=== PATIENT | male | born 1980 | race Caucasian/White ===

== ENCOUNTER 2016-07-28 22:19 | Emergency (ER) | payer OTHER ==
[~2016-07-28] VITALS: Ht 172.7 cm; Wt 97.3 kg
[2016-07-28 23:08] LABS: EOSINOPHIL COUNT 0.2 K/uL (0-0.3); HEMATOCRIT 41.3 % (38.0-50.0); IMMATURE GRANULOCYTE (%) 0.2 % (0.0-0.7); IMMATURE GRANULOCYTE COUNT 0.2 K/uL; MCHC 33.9 G/DL (30.0-36.0); MCV 85.5 FL (86-99); MEAN PLAT.VOLUME 9.5 uM^3 (9.0-12.4); MONOCYTE (%) 7.3 % (3-12); MONOCYTE COUNT 0.8 K/uL (0-0.8); NEUTROPHIL (%) 63.9 % (45-76); NEUTROPHIL COUNT 7.2 K/uL (1.8-6.4); PLATELET COUNT 246 K/uL (156-360); RBC DIS.WIDTH-CV 12.7 % (11.8-14.6); RBC DIS.WIDTH-SD 39.1 % (39-53); RED BLOOD COUNT 4.83 M/uL (4.00-5.50); WHITE BLOOD COUNT 11.3 K/uL (4.1-10.2)
[2016-07-28 23:21] LABS: CHLORIDE 104 mEq/L (99-109); INTER. NORMALIZED RATIO 1.1; POTASSIUM 4.1 mEq/L (3.7-5.4); PROTHROMBIN TIME 10.7 (9.2-11.2); SODIUM 140 mEq/L (136-147)
[2016-07-28 23:24] LABS: GLUCOSE 90 mg/dL (70-99)
[2016-07-28 23:25] LABS: ANION GAP 11 MEQ/L (2-14); TOTAL BILIRUBIN 0.4 mg/dL (0.0-1.0)
[2016-07-28 23:26] LABS: SERUM ETHYL ALCOHOL < 10 mg/dL
[2016-07-28 23:27] LABS: ALKALINE PHOSPHATASE 112 IU/L (3-129); GFR ESTIMATE (CALCULATED) > 59 mL/min/
[2016-07-28 23:28] LABS: UREA NITROGEN (BUN) 9 mg/dL (9-23)
[2016-07-28 23:31] LABS: LIPASE 9 U/L (1.0-51.0)
[2016-07-28 23:34] LABS: TROP-I INTERPRETATION NEGATIVE; TROPONIN-I < 0.01 ng/mL (0.0-0.30)
[2016-07-29] MEDS ORDERED: ATIVAN0.5 MG PO (00:01)
[2016-07-29] MEDS ORDERED: BACTRIM,SEPT1 TABLET PO (00:01)
[2016-07-29 00:10] VITALS: BP 137/67
== END 2016-07-29 00:11 | disposition home or self-care (01) ==
LOC: EME 22:19
PROVIDERS: Emergency Medicine
DX: L03.116 Cellulitis of left lower limb (principal); F41.9 Anxiety disorder, unspecified
CPT/HCPCS: 71020; 80053; 83690; 84484; 85025; 85610; 85730; 93005; 93971; 99281; 99284; G0480